=== PATIENT | female | born 2000 | race Caucasian/White ===

== ENCOUNTER 2022-05-20 06:07 | Emergency (ER) | payer BC ==
[~2022-05-20] VITALS: Ht 160 cm; Wt 100.0 kg
[2022-05-20 06:14] VITALS: BP 121/76; TEMP 98
[2022-05-20] MEDS ORDERED: MOTRIN 800800 MG/TAB PO (07:29)
[2022-05-20] MEDS ORDERED: CRUTCHES MC (07:29)
[2022-05-20 07:35] VITALS: PULSE 85
== END 2022-05-20 07:35 | disposition home or self-care (01) ==
LOC: COL.ER 06:07
DX: S93.401A Sprain of unspecified ligament of right ankle, initial encounter (principal); X50.1XXA Overexertion from prolonged static or awkward postures, initial encounter